=== PATIENT | female | born 1945 | race Two or more races ===

== ENCOUNTER 2024-11-06 08:15 | Outpatient (AMB) | payer MEDICAID, SELFPAY ==
[2024-11-06 08:40] VITALS: BP 157/67; PULSE 77; RESP 18; TEMP 36; O2SAT 96; BMI 31.1
--- NOTE | 2024-11-06 08:40 | PD.ORTHCLVIS ---
Vital signs 11/06/24 08:40 Height 1.5 m Height Method Measured Weight 69.882 kg Weight Measurement Method Standing Scale BMI 31.1 BP 157/67 H Blood Pressure Source Automatic Cuff Blood Pressure Location Right Upper Arm Position Sitting Respiration 18 Pulse 77 Pulse Source Monitor Temp 96.8 F Temp Source Temporal Artery Scan Pulse Oximetry (%) 96 Oxygen Delivery Method Room Air Med/Allergies Allergies & Medications Allergies pencillin Allergy (Uncoded 11/06/24 08:43) hives Medication Reconciliation atorvastatin 80 mg tablet 80 mg PO QDAY 11/06/24 [History Confirmed 11/06/24] empagliflozin 25 mg tablet (Jardiance) 25 mg PO QDAY 11/06/24 [History Confirmed 11/06/24] gabapentin 300 mg capsule 300 mg PO QDAY 11/06/24 [History Confirmed 11/06/24] glipizide 10 mg tablet 10 mg PO QDAY 11/06/24 [History Confirmed 11/06/24] sitagliptin phosphate 50 mg-metformin 1,000 mg tablet (Janumet) 1 tab PO BID 11/06/24 [History Confirmed 11/06/24] Exam Exam Patient is in no acute distress and is cooperative with the examination today. Breathing is nonlabored. In no respiratory distress. Patient has no paraspinal tenderness. Spinal deformity cannot be appreciated. The gait of the patient is nonantalgic Bilateral extremities were evaluated and demonstrates sensation intact to light touch. Palpable pedal pulses are present. No significant edema is present. Bilateral knees were examined and the patient has full strength and range of motion.. The left hip was examined. Patient was able to flex to 90 degrees, adduct to 30 degrees, abduct to 40 degrees, internally rotate to 20 degrees, and externally rotate to 20 degrees. Patient has a negative logroll. Stinchfield is negative. The patient is nontender diffusely to touch. The right hip was examined. Patient was able to flex to 90 degrees. The patient has almost no internal rotation. She and external rotate 20 degrees. She has a very painful logroll X-rays of the right hip demonstrate complete obliteration of the joint space. There are significant osteophytes.Bilateral knee x-rays demonstrate bilateral knee arthritis of moderate severity Assessment and Plan Problem List (1) Degenerative arthritis of knee, bilateral: Status: Acute (2) Arthritis of right hip: Status: Acute Plan: Patient is an 78-year-old female with a right hip pain and right hip arthritis of significant severity. She would like to try a cortisone injection of her right hip. She uses a walker because of the pain. She did have knee injections in the past and they did not help at all. I am fairly confident that the pain is from the hip. We also discussed total hip replacement but she would like to try conservative treatment first. Advanced Care Planning Discussion Advance care planning discussed with:: patient Office Procedures GNS Level of Care Nursing/Assessment Patient Status: Initial/New Patient Nursing Assessment/Reassesment: Medication Reconciliation, Update PMH in EMR and Vital Signs Coordination of Care: Complex Care and Chronic Disease 1-5, Education Complex Pt/Fam, Consent,records obtained, informed consent, 1 Ins Authorization, Lab and Imaging orders, Results/Orders obtained and Staff clarify orders New Patient Charge New Patient Point Assignment: 1124 New Patient Point Charge: DEPUTY ATTORNEY GENERAL Level 4 ([id number]) MA Intake Visit Data Collection New Patient or Established: New Patient (never been to [facility]) Reason for Visit:: hip and knee pain Seen by Clinical Staff ONLY (RN/MA): No Verbal consent obtained for Telemed visit?: No Information Technology Internship Required: Yes PCP or OBGYN visit in last 3 months: Yes Hx Now: No Do You Feel Safe at Home: Yes Authorities Contacted: N/A Questionairres Past Medical History Past Medical History Have you ever been diagnosed with any of the following: Subjective Visit Visit for: new patient and hip Immunization / Flu Flu Vaccine in the Last 12 Months: Yes Flu Vaccine Exclusion Criteria: Already Received History of Present Illness Chief complaint: Right hip pain Shonna is a pleasant 78-year-old female with right hip pain. The pain radiates to the knee as well. She saw prior orthopedic surgeon who said it was from her hip. He does not do hip replacements. Personal History Occupation: DISABLED Pain Pain level (0-10): 10 Pain duration: ALL DAY SHARP Pain location: groin and outside (lateral) Pain quality: sharp and other (specify) Associated signs & symptoms: numbness, weakness and stiffness Ambulatory data Ambulatory device: walker Treatments Improvement with previous injections: No Improvement with PT: No Improvement with NSAIDS: no Review of Systems Review of Systems: All systems negative unless otherwise noted in HPI.
== END 2024-11-06 09:02 | disposition home or self-care (01) ==
LOC: HODSRG 08:15
PROVIDERS: PCP Family Medicine; Referring Provider Family Medicine; Supervising Provider Orthopaedic Surgery Adult Reconstructive Orthopaedic Surgery; Visit Provider Orthopaedic Surgery Adult Reconstructive Orthopaedic Surgery
DX: M17.0 Bilateral primary osteoarthritis of knee (principal); M16.11 Unilateral primary osteoarthritis, right hip; M25.551 Pain in right hip
CPT/HCPCS: 99204; G0463

== ENCOUNTER 2025-01-03 08:19 | Outpatient (AMB) | payer MEDICAID, SELFPAY ==
[2025-01-03 08:33] VITALS: BP 166/72; PULSE 87; RESP 18; TEMP 36.5; O2SAT 95; BMI 31.4
--- NOTE | 2025-01-03 08:33 | ORTHONT_ITS ---
Vital signs 01/03/25 08:33 Height 1.5 m Height Method Stated Weight 70.817 kg Weight Measurement Method Standing Scale BMI 31.4 BP 166/72 H Blood Pressure Source Automatic Cuff Blood Pressure Location Right Upper Arm Position Sitting Respiration 18 Pulse 87 Pulse Source Monitor Temp 97.7 F Temp Source Temporal Artery Scan Pulse Oximetry (%) 95 Oxygen Delivery Method Room Air Med/Allergies Allergies & Medications Allergies pencillin Allergy (Uncoded 01/03/25 08:34) hives Medication Reconciliation atorvastatin 80 mg tablet 80 mg PO QDAY 11/06/24 [History Confirmed 01/03/25] empagliflozin 25 mg tablet (Jardiance) 25 mg PO QDAY 11/06/24 [History Confirmed 01/03/25] gabapentin 300 mg capsule 300 mg PO QDAY 11/06/24 [History Confirmed 01/03/25] glipizide 10 mg tablet 10 mg PO QDAY 11/06/24 [History Confirmed 01/03/25] sitagliptin phosphate 50 mg-metformin 1,000 mg tablet (Janumet) 1 tab PO BID 11/06/24 [History Confirmed 01/03/25] Exam Exam Patient is in no acute distress and is cooperative with the examination today. Breathing is nonlabored. In no respiratory distress. Patient has no paraspinal tenderness. Spinal deformity cannot be appreciated. The gait of the patient is nonantalgic Bilateral extremities were evaluated and demonstrates sensation intact to light touch. Palpable pedal pulses are present. No significant edema is present. Bilateral knees were examined and the patient has full strength and range of motion.. The left hip was examined. Patient was able to flex to 90 degrees, adduct to 30 degrees, abduct to 40 degrees, internally rotate to 20 degrees, and externally rotate to 20 degrees. Patient has a negative logroll. Stinchfield is negative. The patient is nontender diffusely to touch. The right hip was examined. Patient was able to flex to 90 degrees. The patient has almost no internal rotation. She and external rotate 20 degrees. She has a very painful logroll X-rays of the right hip demonstrate complete obliteration of the joint space. There are significant osteophytes.Bilateral knee x-rays demonstrate bilateral knee arthritis of moderate severity Assessment and Plan Problem List (1) Degenerative arthritis of knee, bilateral: Status: Acute (2) Arthritis of right hip: Status: Acute Plan: Patient is an 78-year-old female with a right hip pain and right hip arthritis of significant severity. She would like to try a cortisone injection of her right hip. She uses a walker because of the pain. She did have knee injections in the past and they did not help at all. I am fairly confident that the pain is from the hip. We also discussed total hip replacement but she would like to try conservative treatment first. We did again discuss total hip replacement tod janelle but she would like to try a right hip cortisone injection. We discussed that she has severe arthritis and I would not recommend too many of these. She would like to try one and we will order it. Advanced Care Planning Discussion Advance care planning discussed with:: patient Office Procedures GNS Level of Care Nursing/Assessment Patient Status: Established Patient Nursing Assessment/Reassesment: Medication Reconciliation, Update PMH in EMR and Vital Signs Coordination of Care: Complex Care and Chronic Disease 1-5, Education Complex Pt/Fam, Consent,records obtained, informed consent, Results/Orders obtained and Staff clarify orders Special Needs: Language special needs Established Patient Charge Established Patient Point Assignment: 95 Established Patient Point Charge: EP Level 3 (80-115) MA Intake Visit Data Collection New Patient or Established: Established Patient (seen at [facility] within 3 years) Reason for Visit:: RIGHT HIP PAIN & POSS. INJECTION Seen by Clinical Staff ONLY (RN/MA): No Verbal consent obtained for Telemed visit?: No Clinical Interviewer Required: Yes PCP or OBGYN visit in last 3 months: Yes Hx Now: No Do You Feel Safe at Home: Yes Authorities Contacted: N/A Questionairres Past Medical History Past Medical History Have you ever been diagnosed with any of the following: Subjective Visit Visit for: follow up visit and hip Immunization / Flu Flu Vaccine in the Last 12 Months: No Flu Vaccine Exclusion Criteria: No Exclusion Criteria History of Present Illness Chief complaint: Right hip pain, requesting an injection Shonna is a pleasant 78-year-old female with right hip pain. The pain radiates to the knee as well. She saw prior orthopedic surgeon who said it was from her hip. We discussed thatI would recommend a total hip replacement on the right. 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 She reports that she wants to try intra-articular hip injection before jumping to surgery. She has tried anti-inflammatories previously Personal History Occupation: retired Red flag PMH: BMI BMI Counceling provided: Yes Pain Pain level (0-10): 10 Pain duration: all day Pain location: groin and outside (lateral) Pain quality: sharp Pain timing: night, increases with activity and stairs Associated signs & symptoms: numbness, weakness and stiffness Ambulatory data Ambulatory device: walker Treatments Improvement with previous injections: No Improvement with PT: No Improvement with NSAIDS: no Review of Systems Review of Systems: All systems negative unless otherwise noted in HPI.
== END 2025-01-03 10:06 | disposition home or self-care (01) ==
PROVIDERS: PCP Family Medicine; Referring Provider Family Medicine; Supervising Provider Orthopaedic Surgery Adult Reconstructive Orthopaedic Surgery; Visit Provider Orthopaedic Surgery Adult Reconstructive Orthopaedic Surgery
DX: M17.0 Bilateral primary osteoarthritis of knee (principal); M16.11 Unilateral primary osteoarthritis, right hip
CPT/HCPCS: 99213; G0463

== ENCOUNTER 2025-01-22 07:55 | Outpatient (AMB) | payer MEDICAID, SELFPAY ==
[2025-01-22 08:11] VITALS: BP 169/80; PULSE 91; RESP 19; TEMP 36.2; O2SAT 96; BMI 30.7
--- NOTE | 2025-01-22 08:11 | PD.ORTHCLVIS ---
Vital signs 01/22/25 08:11 Height 1.5 m Height Method Stated Weight 69.201 kg Weight Measurement Method Standing Scale BMI 30.7 BP 169/80 H Blood Pressure Source Automatic Cuff Blood Pressure Location Right Upper Arm Position Sitting Respiration 19 Pulse 91 Pulse Source Monitor Temp 97.2 F Temp Source Temporal Artery Scan Pulse Oximetry (%) 96 Oxygen Delivery Method Room Air Med/Allergies Allergies & Medications Allergies pencillin Allergy (Uncoded 01/22/25 08:12) hives Medication Reconciliation atorvastatin 80 mg tablet 80 mg PO QDAY 11/06/24 [History Confirmed 01/22/25] empagliflozin 25 mg tablet (Jardiance) 25 mg PO QDAY 11/06/24 [History Confirmed 01/22/25] gabapentin 300 mg capsule 300 mg PO QDAY 11/06/24 [History Confirmed 01/22/25] glipizide 10 mg tablet 10 mg PO QDAY 11/06/24 [History Confirmed 01/22/25] sitagliptin phosphate 50 mg-metformin 1,000 mg tablet (Janumet) 1 tab PO BID 11/06/24 [History Confirmed 01/22/25] meloxicam 7.5 mg tablet 7.5 mg PO QDAY #45 tabs 01/22/25 [Rx] Exam Exam Patient is in no acute distress and is cooperative with the examination today. Breathing is nonlabored. In no respiratory distress. Patient has no paraspinal tenderness. Spinal deformity cannot be appreciated. The gait of the patient is nonantalgic Bilateral extremities were evaluated and demonstrates sensation intact to light touch. Palpable pedal pulses are present. No significant edema is present. Bilateral knees were examined and the patient has full strength and range of motion.. The left hip was examined. Patient was able to flex to 90 degrees, adduct to 30 degrees, abduct to 40 degrees, internally rotate to 20 degrees, and externally rotate to 20 degrees. Patient has a negative logroll. Stinchfield is negative. The patient is nontender diffusely to touch. The right hip was examined. Patient was able to flex to 90 degrees. The patient has almost no internal rotation. She and external rotate 20 degrees. She has a very painful logroll X-rays of the right hip demonstrate complete obliteration of the joint space. There is also significant degeneration of the lumbar spine There are significant osteophytes.Bilateral knee x-rays demonstrate bilateral knee arthritis of moderate severity Assessment and Plan Problem List (1) Degenerative arthritis of knee, bilateral: Status: Acute (2) Arthritis of right hip: Status: Acute Plan: Patient is an 78-year-old female with a right hip pain and right hip arthritis of significant severity. She would like to try a cortisone injection of her right hip. She uses a walker because of the pain. She did have knee injections in the past and they did not help at all. I am fairly confident that the pain is from the hip. What is worrisome to me is that all her pain is actually in her low back. She received a hip injection and she reports that the pain is isolated to the low back with almost no improvement. On rotation of her leg, she reports that there is some pain in her thigh but she can feel that is very different than the back pain that is bothering her normally. We discussed that although she is a candidate for total hip replacement as she has severe arthritis, she will continue to have low back pain as there is significant degeneration of her lumbar spine. I would recommend that she see a air cargo specialist supervisor first as the back pain she has is a 10 out of 10 pain she reports that the groin pain she has is very minimal. I discussed with the patient that she is still likely to have persistent back pain even If we were to fix her hip Advanced Care Planning Discussion Advance care planning discussed with:: patient Office Procedures GNS Level of Care Nursing/Assessment Patient Status: Established Patient Nursing Assessment/Reassesment: Medication Reconciliation, Update PMH in EMR and Vital Signs Coordination of Care: Complex Care and Chronic Disease 1-5, Education Complex Pt/Fam, Consent,records obtained, informed consent, Lab and Imaging orders and Results/Orders obtained Special Needs: Language special needs Established Patient Charge Established Patient Point Assignment: 100 Established Patient Point Charge: EP Level 3 (80-115) MA Intake Visit Data Collection New Patient or Established: Established Patient (seen at [facility] within 3 years) Reason for Visit:: F/U HIP INJECTION Seen by Clinical Staff ONLY (RN/MA): No Verbal consent obtained for Telemed visit?: No Client Care Specialist Required: Yes PCP or OBGYN visit in last 3 months: Yes Hx Now: No Do You Feel Safe at Home: Yes Authorities Contacted: N/A Questionairres Past Medical History Past Medical History Have you ever been diagnosed with any of the following: Subjective Visit Visit for: follow up visit, hip and injections Immunization / Flu Flu Vaccine in the Last 12 Months: Yes Flu Vaccine Exclusion Criteria: Already Received History of Present Illness Chief complaint: F/U HIP INJECTION Shonna is a pleasant 78-year-old female with right hip pain. The pain radiates to the knee as well. She saw prior orthopedic surgeon who said it was from her hip. We discussed tra I would recommend a total hip replacement on the right. 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 She reports that she wants to try intra-articular hip injection before jumping to surgery. She has tried anti-inflammatories previously She had a hip injection of her right side. They provided minimal pain relief. She reports all the pain is still in her back and that the groin and leg pain that she has is mild. Personal History Occupation: RETIRED Red flag PMH: BMI BMI Counceling provided: Yes Pain Pain level (0-10): 10 Pain duration: ALL DAY Pain location: groin, outside (lateral) and anterior Pain quality: sharp Pain timing: night, increases with activity and stairs Associated signs & symptoms: numbness, weakness and stiffness Ambulatory data Ambulatory device: walker Treatments Improvement with previous injections: No Improvement with PT: No Improvement with NSAIDS: no Review of Systems Review of Systems: All systems negative unless otherwise noted in HPI.
== END 2025-01-22 08:42 | disposition home or self-care (01) ==
LOC: HODSRG 07:55
PROVIDERS: PCP Family Medicine; Referring Provider Family Medicine; Supervising Provider Orthopaedic Surgery Adult Reconstructive Orthopaedic Surgery; Visit Provider Orthopaedic Surgery Adult Reconstructive Orthopaedic Surgery
DX: M17.0 Bilateral primary osteoarthritis of knee (principal); M16.11 Unilateral primary osteoarthritis, right hip; M25.551 Pain in right hip
CPT/HCPCS: 99213; G0463